=== PATIENT | female | born 1950 | race Caucasian/White ===

== ENCOUNTER → 2017-12-12 | Outpatient (CLI) | payer OTHER ==
[~2017-12-12] MED LIST: NORCO 5-325 TA1 EACH PO; [UNRECOGNIZED DRUG - REMARK]
== END ==
LOC: M.RAD 09:19
DX: R07.9 Chest pain, unspecified (principal)

== ENCOUNTER → 2018-03-24 | Outpatient (CLI) | payer OTHER | LOC: M.RAD 11:02 | DX: S62.102A Fracture of unspecified carpal bone, left wrist, initial encounter for closed fracture (principal); W19.XXXA Unspecified fall, initial encounter; Y93.89 Activity, other specified; Y92.89 Other specified places as the place of occurrence of the external cause; Y99.8 Other external cause status ==

== ENCOUNTER → 2019-09-09 | Outpatient (CLI) | payer MEDICARE | LOC: M.RAD 10:20 | DX: R92.1 Mammographic calcification found on diagnostic imaging of breast (principal); E55.9 Vitamin D deficiency, unspecified; Z80.3 Family history of malignant neoplasm of breast ==

== ENCOUNTER → 2020-08-03 | Outpatient (CLI) | payer MEDICARE | LOC: M.RAD 10:59 | PROVIDERS: ATTEND Family Medicine | DX: M19.012 Primary osteoarthritis, left shoulder (principal); M25.512 Pain in left shoulder; R07.81 Pleurodynia ==

== ENCOUNTER → 2020-09-20 | Outpatient (CLI) | payer MEDICARE | LOC: M.RAD 09-05 07:51 | PROVIDERS: ATTEND Family Medicine | DX: Z12.31 Encounter for screening mammogram for malignant neoplasm of breast (principal); Z13.820 Encounter for screening for osteoporosis; M81.0 Age-related osteoporosis without current pathological fracture ==